=== PATIENT | female | born 1995 | race Caucasian/White ===

== ENCOUNTER 2021-06-23 18:19 | Emergency (ER) | payer OTHER ==
[~2021-06-23] VITALS: Ht 165.1 cm; Wt 77.1 kg
[2021-06-23 20:37] LABS: HEMATOCRIT 38.1 % (37.0-47.0); HEMOGLOBIN 12.8 gm/dL (12.0-15.0); MCH 27.8 pg (26.0-34.0); MCHC 33.7 g/dL (28.0-37.0); MCV 82.5 fL (80.0-100.0); MPV 7.4 fl. (7.2-11.1); RBC 4.62 mil/uL (4.20-5.00); RDW-CV 12.9 % (10.5-14.5); WBC 14.1 thou/uL (4.0-11.0)
[2021-06-23 20:56] LABS: CALCIUM 8.9 mg/dL (8.5-10.1); CREATININE 0.7 mg/dL (0.6-1.3); POTASSIUM 3.8 mmol/L (3.5-5.1)
[2021-06-23 21:13] LABS: URINE BILIRUBIN NEGATIVE (Negative); URINE BLOOD 3+ (Negative); URINE CLARITY CLEAR; URINE COLOR YELLOW; URINE GLUCOSE-RANDOM NEGATIVE (Negative); URINE KETONES 1+ (Negative); URINE LEUKOCYTES-REFLEX NEGATIVE (Negative); URINE NITRITE-REFLEX NEGATIVE (Negative); URINE PROTEIN NEGATIVE (Negative); URINE UROBILINOGEN 0.2 E.U./dl (0.2-1.0)
[2021-06-23 21:27] LABS: BACTERIA-REFLEX 1-9 Few /HPF (None Seen); CASTS None Seen /LPF (None Seen); MUCUS 0-3 Light strn/LPF (None Seen); SQUAMOUS >10 Many /LPF (0-3); URINE RBC >20 Many /HPF (0-2); URINE WBC-REFLEX 0-5 Rare /HPF (0-5)
[2021-06-23 21:28] LABS: CRYSTALS None Seen /LPF (None Seen)
[2021-06-23] MEDS ORDERED: ONDANSETRON ODT4 MG PO (21:28)
[2021-06-23 21:43] VITALS: BP 107/57
== END 2021-06-23 21:43 | disposition home or self-care (01) ==
LOC: M.ERS 18:19
PROVIDERS: Physician Assistant
DX: R11.2 Nausea with vomiting, unspecified (principal)